=== PATIENT | female | born 1990 | race Caucasian/White ===

== ENCOUNTER 2019-03-19 17:57 | Day surgery (SDC) | payer OTHER ==
[2019-03-19 18:26] VITALS: BMI 32.3
--- NOTE | 2019-03-19 19:09 | PDOC.LDHP ---
Labor and Delivery H&P Chief complaint: contractions, other (Mucous discharge. No loss of fluid.) HPI: Patient is 28 yo at 39w6d under the care of Dr Ludwig Ball. Her History is unremarkable. Tonight she noticed increasing contractions adn came in for labor cehck. She also notes mucous discharge. Otherwise she is without complaint. Good movement noted. Current gestational age (weeks): 39 Due date: 03/20/19 Dating criteria: last menstrual period Grav: 2 Para: 1 Current complications: none Past Medical History: None Current medications: pre- vitamins Previous surgical history: none Allergies/Adverse Reactions: Allergies Allergy/AdvReac Type Severity Reaction Status Date / Time No Known Allergies Allergy Verified 06/09/16 10:00 Social history: none - Physical Exam Vital signs reviewed and normal: yes General: NAD Heart: RRR Lungs: CTAB Abdomen: NTTP Extremeties: no edema FHT: category 1 (normal baseline, +accels. No decels.) [place] contractions every: 8 min - Vaginal Exam cm dilated: 3 Effacement: 90% Station: -1 - OB Labs Blood type: B RH: positive Antibody Screen: negative HIV: negative RPR: negative HEPSAg: negative 1 hour GCT: negative GBS: negative Rubella: non-immune - Assessment Term in early labor, but not active labor. Pt to be discharged home with labor education given. All questions answered. Katrin and her mother are pleased with plan.
== END 2019-03-19 19:10 | disposition home or self-care (01) ==
LOC: L&D/OP 17:57
PROVIDERS: ATTEND Obstetrics & Gynecology
DX: O47.1 False labor at or after 37 completed weeks of gestation (principal); O99.89 Other specified diseases and conditions complicating pregnancy, childbirth and the puerperium; N89.8 Other specified noninflammatory disorders of vagina; Z3A.39 39 weeks gestation of pregnancy
CPT/HCPCS: 99282

== ENCOUNTER 2019-03-21 01:36 | Inpatient (IN) | payer OTHER ==
[2019-03-21 02:10] VITALS: BMI 32.1
[2019-03-21] MEDS: Lactated Ringer's 1,000 ML IV SCH ×2 (02:40→04:48)
[2019-03-21] MEDS ORDERED: HYDROcodone/Acetaminophen 5/325 mg Tablet PO PRN ×4 (02:42→07:01)
[2019-03-21] MEDS ORDERED: Ibuprofen 800 MG TAB PO PRN (02:42)
[2019-03-21] MEDS ORDERED: hydrALAZINE 20 MG/ML VIAL SLOW IVP PRN ×2 (02:42→07:01)
[2019-03-21] MEDS ORDERED: Butorphanol Tartrate 1 MG/ML VIAL SLOW IVP PRN (02:42)
[2019-03-21] MEDS ORDERED: NS / Oxytocin 40 units/1000ml 1,000 ML IV PRN (02:42)
[2019-03-21] MEDS ORDERED: NS w/ Oxytocin 10 units 500 ML IV SCH (02:42)
[2019-03-21] MEDS ORDERED: Promethazine HCl 25 MG/ML VIAL IM PRN ×3 (02:42→07:01)
[2019-03-21] MEDS ORDERED: Ondansetron PF 4 MG/2 ML Vial IVP PRN ×3 (02:42→07:01)
[2019-03-21] MEDS ORDERED: Lactated Ringer's 1,000 ML IV SCH (02:42)
[2019-03-21] MEDS ORDERED: Lidocaine 1% (PF) 30 ML VIAL SC PRN (02:42)
[2019-03-21] MEDS ORDERED: Butorphanol Tartrate 1 MG/ML VIAL ONE (02:46)
[2019-03-21 02:59] LABS: Hemoglobin 13.3 g/dL (12.0-16.0); Mean Corpuscular HGB CONC 33.6 g/dL (32.0-36.0); Mean Corpuscular Hemoglobin 27.5 pg (27.0-31.0); Mean Corpuscular Volume 82.1 fL (78.0-98.0); Mean Platelet Volume 9.2 fL (7.4-10.4); Platelet Count 240 thou/uL (130-400); RBC Distribution Width 13.3 % (11.5-14.5); Red Blood Cell (RBC) Count 4.82 mill/uL (4.20-5.40); White Blood Cell (WBC) Count 10.9 thou/uL (4.8-10.8)
[2019-03-21 03:40] LABS: HBSAg Index 0.33 S/CO (0-0.99); Hep B Surf Ag Non-Reactive S/CO (NonReactive)
[2019-03-21] MEDS ORDERED: Fentanyl 4 mcg/Bup 0.1% Cadd 100 ML ONE (03:40)
[2019-03-21] MEDS ORDERED: Lidocaine 1.5%/Epinephrine 1:200,000 5 ML AMPUL IJ ONE (03:44)
[2019-03-21] MEDS ORDERED: Lactated Ringer's 500 ML IV PRN (03:55)
[2019-03-21] MEDS ORDERED: diphenhydrAMINE 50 MG/ML VIAL IVP PRN (03:55)
[2019-03-21] MEDS ORDERED: Naloxone HCl 0.4 mg/ml Vial IVP PRN ×2 (03:55)
[2019-03-21] MEDS ORDERED: ePHEDrine/0.9% NaCl/PF SYRINGE 50 mg/10 ml SLOW IVP PRN (03:55)
[2019-03-21] MEDS ORDERED: Acetaminophen 325 MG TAB PO PRN (03:55)
[2019-03-21] MEDS ORDERED: Fentanyl 4 mcg/Bupivacaine 0.1% Cassette 100 ML EPIDURAL SCH (04:00)
[2019-03-21] MEDS ORDERED: Communication Order-Pharmacy FS SCH (04:00)
[2019-03-21 05:06] LABS: Syphilis Antibody Nonreactive (Nonreactive); Syphilis Antibody Index 0.05 S/CO (<1.00 Non-Reactive)
--- NOTE | 2019-03-21 06:02 | HP ---
TIME OF SERVICE: 519 PRESENTING COMPLAINT: Contractions at term. HISTORY OF PRESENT ILLNESS: Ms. Felipe is a 28-year-old, 2, para 1, with EDC of 03/20, placing her at 40 weeks and 1 day gestation. She presents complaining of contractions for 7 hours. She denies rupture of membranes. She received antepartum care from Dr. Ludwig Ball at [facility]. [employer] HISTORY: Spontaneous vaginal delivery x1 in 2017 of a 6-pound 11-ounce male, uncomplicated. Blood type; B positive, antibody negative. Pap negative. Rubella immune. VDRL nonreactive. Hepatitis B and gonorrhea negative. Initial chlamydia was positive. The patient was treated and test of cure was negative. Initial ASB urine culture was positive, treated, and repeat was negative. Group B strep negative. PAST MEDICAL HISTORY: None. PAST SURGICAL HISTORY: None. ALLERGIES: DENIES. MEDICATIONS: vitamins. SOCIAL HISTORY: Denies tobacco, alcohol, or IV drug use. FAMILY HISTORY: Noncontributory. REVIEW OF SYSTEMS: Noncontributory. PHYSICAL EXAMINATION: GENERAL: female, in no acute distress. VITAL SIGNS: Blood pressure 132/86, pulse 85, respirations 18, temperature 98.8. HEENT: Within normal limits. LUNGS: Clear to auscultation bilaterally. HEART: Regular rate and rhythm. ABDOMEN: Soft, between contractions, and nontender. She has contractions q.3 minutes. FHTs are 130s to 140s with positive accelerations, no decelerations, category I heart rate tracing. : Vulva without lesions. Vagina without discharge. Cervix was 7 to 8, complete, +1 station, cephalic, bulging bag. EXTREMITIES: Without clubbing, cyanosis, or edema. LABORATORY DATA: Admitting H and H are 13.3 and 39.5 with a platelet count of 240. IMPRESSION: Term multigravida in active labor with reassuring category I heart rate tracing. PLAN: Admission, epidural per patient's request, anticipate spontaneous rupture of membranes versus amniotomy, anticipate spontaneous vaginal delivery. Job ID: [id number]
[2019-03-21] MEDS ORDERED: NS / Oxytocin 40 units/1000ml 1,000 ML IV SCH (07:01)
[2019-03-21] MEDS ORDERED: Benzocaine-Menthol 82.5 ML CAN TOP PRN (07:01)
[2019-03-21] MEDS ORDERED: Zolpidem Tartrate 5 MG TAB PO PRN (07:01)
[2019-03-21] MEDS ORDERED: Adacel (T-DAP) 0.5 ML SYRINGE IM ONE (07:01)
[2019-03-21] MEDS ORDERED: Milk Of Magnesia 30 ML UDCUP PO PRN (07:01)
[2019-03-21] MEDS ORDERED: diphenhydrAMINE 25 MG CAP PO PRN (07:01)
[2019-03-21] MEDS ORDERED: Bisacodyl 10 MG SUPP PR PRN (07:01)
[2019-03-21] MEDS ORDERED: Lanolin Ointment 7 GM TUBE TOP PRN (07:01)
[2019-03-21] MEDS ORDERED: Preparation H Ointment 28 GM TUBE PR PRN (07:01)
--- NOTE | 2019-03-21 07:11 | DN ---
DATE OF PROCEDURE: 03/21/2019 TIME OF SERVICE: 06. PREDELIVERY DIAGNOSIS: Term labor. POSTDELIVERY DIAGNOSIS: Term labor. PROCEDURE PERFORMED: Spontaneous vaginal delivery with second-degree midline laceration. ANESTHESIA: Epidural. COMPLICATIONS: None. ESTIMATED BLOOD LOSS: Minimal. QUANTITATIVE BLOOD LOSS: Pending. FINDINGS: 1. Vigorous male infant, Apgars and weight pending to [facility]. 2. Second-degree midline laceration repaired in usual manner. 3. Correct counts at the end of the procedure. DESCRIPTION OF PROCEDURE: The patient had AROM at approximately 0530 with clear fluid at 8 cm. Over the next hour, she progressed to complete, complete, +3 to +4 station with urge to push. The patient was prepped and draped in the usual manner. She pushed during one contraction and delivered spontaneously a vigorous male infant without nuchal cord or other complication. Infant was placed on maternal abdomen. Delayed cord clamping was carried out. Infant was handed off to nurse in attendance. Cord blood sample was obtained. Placenta delivered spontaneously intact. Second-degree midline laceration was noted and was repaired using a 2-0 chromic in the usual manner. Counts were correct at the end of the procedure. The patient began to enter into routine care. Job ID: [id number]
[2019-03-21] MEDS: Ferrous Sulfate 325 MG TAB PO SCH ×2 (13:56→18:21)
[2019-03-21] MEDS: Ibuprofen 800 MG TAB PO SCH ×2 (13:58→21:52)
[2019-03-21] MEDS: Docusate Calcium (SURFAK) 240 MG CAP PO SCH ×2 (14:00→21:52)
[2019-03-21] MEDS: Prenatal Vitamin 1 TAB PO SCH (14:00)
[2019-03-21] MEDS ORDERED: Bupivacaine/Epinephrine 0.25% 30 ML VIAL ONE (15:00)
[2019-03-22] MEDS: Ibuprofen 800 MG TAB PO SCH (05:24)
[2019-03-22 07:53] VITALS: BP 105/67; TEMP 97.8
--- NOTE | 2019-03-22 08:12 | PDOC.PP ---
Post Progress Note Post Day #: 1 Subjective: doing well, no concerns PO intake tolerated: yes Flatus: yes Ambulation: yes Vital Signs (12 hours) Temp Pulse Resp BP Pulse Ox 03/22/19 07:52 97.8 F 88 20 105/67 98 03/22/19 04:30 98.1 F 98 16 103/72 03/22/19 00:00 98.0 F 102 H 18 108/54 L Weight Weight 170 lb - Physical Examination General: NAD Respiratory: non-labored breathing Abdominal: no distention Fundus firm & at: below umb Skin: no rash Neurological: no gross focal deficits Psychiatric: A&Ox3, normal affect Result Diagrams: 03/21/19 02:51 Additional Labs: Post Labs Blood Type B POSITIVE 03/21/19 07:22 Hep Bs Antigen Non-Reactive S/CO (NonReactive) 03/21/19 02:51 (1) Active labor at term Code(s): [id number] - Status: Acute - Assessment/Plan PPD1 doing well, plan for DC home today
[2019-03-22] MEDS: Ferrous Sulfate 325 MG TAB PO SCH (09:35)
[2019-03-22] MEDS: Prenatal Vitamin 1 TAB PO SCH (09:35)
[2019-03-22] MEDS: Docusate Calcium (SURFAK) 240 MG CAP PO SCH (09:35)
[2019-03-22] MEDS ORDERED: Measles/Mumps/Rubella 10 MCG/0.5 ML VIAL SC ONE (12:00)
== END 2019-03-22 12:15 | disposition home or self-care (01) | DRG 807 ==
LOC: L&D/OP 01:36 → L&D 02:38 → 3SW 08:56
PROVIDERS: ADMIT Obstetrics & Gynecology; ATTEND Obstetrics & Gynecology
PROC: 10E0XZZ Delivery of Products of Conception, External Approach (ICD-10-PCS; principal; 2019-03-21)
PROC: 0KQM0ZZ Repair Perineum Muscle, Open Approach (ICD-10-PCS; 2019-03-21)
PROC: 3E0134Z Introduction of Serum, Toxoid and Vaccine into Subcutaneous Tissue, Percutaneous Approach (ICD-10-PCS; 2019-03-21)
DX: O48.0 Post-term pregnancy (principal); Z37.0 Single live birth; O70.1 Second degree perineal laceration during delivery; Z3A.40 40 weeks gestation of pregnancy; Z23 Encounter for immunization
CPT/HCPCS: 36415; 51702; 85027; 86780; 86850; 86900; 86901; 87340; 99285; J0595; J2001; J2405; J3490